=== PATIENT | female | born 2000 | race Caucasian/White ===

== ENCOUNTER 2021-07-14 13:56 | Emergency (ER) | payer OTHER ==
[2021-07-14 14:25] VITALS: BP 119/78; PULSE 98; TEMP 98.7; BMI 24.3
== END 2021-07-14 15:09 | disposition home or self-care (01) ==
LOC: JER 13:56 → JERFT 13:56
DX: H60.332 Swimmer's ear, left ear (principal)
CPT/HCPCS: 99283-25

== ENCOUNTER 2023-10-25 13:23 | Emergency (ER) | payer OTHER ==
[2023-10-25 13:30] VITALS: BP 110/60; PULSE 72; RESP 20; TEMP 98; BMI 24.3
[2023-10-25 13:53] LABS: HCG,QUALITATIVE URINE Positive
[2023-10-25 13:54] LABS: URINE APPEARANCE CLEAR; URINE BILIRUBIN NEGATIVE (NEGATIVE); URINE COLOR YELLOW; URINE GLUCOSE (UA) NEGATIVE (NEGATIVE); URINE KETONE NEGATIVE (NEGATIVE); URINE LEUK ESTERASE NEGATIVE (NEGATIVE); URINE NITRITE NEGATIVE (NEGATIVE); URINE PROTEIN NEGATIVE (NEGATIVE); URINE UROBILINOGEN 0.2 mg/dL (0.2-1.0)
== END 2023-10-25 14:27 | disposition home or self-care (01) ==
LOC: JERFT 13:23
DX: Z32.01 Encounter for pregnancy test, result positive (principal)
CPT/HCPCS: 81003; 84703; 99283-25